=== PATIENT | female | born 1995 | race American Indian/Alaskan Native ===

== ENCOUNTER 2017-02-15 16:58 | Emergency (ER) | payer SELFPAY ==
[2017-02-15 17:45] LABS: Bilirubin,Urine NEG (Negative); Blood,Urine NEG (Negative); Ketones,Urine NEG (Negative); Leukocyte Esterase,Urine NEG (Negative); Mucus,Urine FEW /HPF; Nitrite,Urine NEG (Negative); Protein,Urine <15 mg/dL mg/dL (Negative); Urobilinogen,Urine < 2.0 mg/dL (<2.0)
--- NOTE | 2017-02-15 19:52 | Emergency Department Report ---
ED Female HPI - General Chief complaint: Urogenital-Female Stated complaint: FREQUENT URINATING, ABDOMINAL PAIN, DISCHARGE Time Seen by Provider: 02/15/17 19:33 Source: patient Mode of arrival: Ambulatory Limitations: No Limitations - History of Present Illness Initial comments: This is a 21-year-old female nontoxic, well nourished in appearance, no acute signs of distress presents to the ED complaining of foul order with vaginal discharge x1 week. She stated she had a sexual activity with an unknown male without condoms and then developed the symptoms. Patient states she is concerned about STD and would like to be treated empirically. Patient denies any dysuria, polyuria, hematuria, urinary frequency, pelvic pain, abdominal pain , nausea, vomiting, chest pain or shortness of breath. Patient denies any fever or chills. Denies any allergies with past medical history of anxiety. MD Complaint: vaginal discharge -: week(s) (1) Radiation: non-radiating Severity: mild Severity scale (0 -10): 0 Consistency: constant Improves with: none Worsens with: none Are you Now?: No Last Menstrual Period: 01/31/17 EDC: 11/07/17 Associated Symptoms: vaginal discharge. denies: vaginal bleeding, abdominal pain, nausea/vomiting, fever/chills, headaches, loss of appetite, dysuria, hematuria, rash, seizure, shortness of breath, syncope, weakness - Related Data Sexually active: Yes Allergies Allergy/AdvReac Type Severity Reaction Status Date / Time No Known Allergies Allergy Unverified 02/15/17 17:12 ED Review of Systems ROS: Stated complaint: FREQUENT URINATING, ABDOMINAL PAIN, DISCHARGE Other details as noted in HPI Constitutional: denies: chills, fever Eyes: denies: eye pain, eye discharge, vision change ENT: denies: ear pain, throat pain Respiratory: denies: cough, shortness of breath, wheezing Cardiovascular: denies: chest pain, palpitations Endocrine: no symptoms reported Gastrointestinal: denies: abdominal pain, nausea, diarrhea Genitourinary: discharge. denies: urgency, dysuria Musculoskeletal: denies: back pain, joint swelling, arthralgia Skin: denies: rash, lesions Neurological: denies: headache, weakness, paresthesias Psychiatric: denies: anxiety, depression Hematological/Lymphatic: denies: easy bleeding, easy bruising ED Past Medical Hx - Past Medical History Previous Medical History?: Yes Hx Psychiatric Treatment: Yes (Anxiety, depression) - Surgical History Past Surgical History?: No - Social History Smoking Status: Current Some Day Smoker Substance Use Type: Alcohol, Marijuana ED Physical Exam - General Limitations: No Limitations General appearance: alert, in no apparent distress - Head Head exam: Present: atraumatic, normocephalic, normal inspection - Eye Eye exam: Present: normal appearance, PERRL, EOMI. Absent: scleral icterus, conjunctival injection, nystagmus, periorbital swelling, periorbital tenderness Pupils: Present: normal accommodation - ENT ENT exam: Present: normal exam, normal orophraynx, mucous membranes moist, TM's normal bilaterally, normal external ear exam - Neck Neck exam: Present: normal inspection, full ROM. Absent: tenderness, meningismus, lymphadenopathy, thyromegaly - Respiratory Respiratory exam: Present: normal lung sounds bilaterally. Absent: respiratory distress, wheezes, rales, rhonchi, stridor, chest wall tenderness, accessory muscle use, decreased breath sounds, prolonged expiratory - Cardiovascular Cardiovascular Exam: Present: regular rate, normal rhythm, normal heart sounds. Absent: bradycardia, tachycardia, irregular rhythm, systolic murmur, diastolic murmur, rubs, gallop - GI/Abdominal GI/Abdominal exam: Present: soft, normal bowel sounds. Absent: distended, tenderness, guarding, rebound, rigid, diminished bowel sounds - Expanded GI/Abdominal Exam Expanded GI/Abdominal exam: Absent: psoas sign, obturator sign, heel tap sign, Fletcher's sign, Rovsing's sign, tenderness at [place]'s [place], ascites - Rectal Rectal exam: Present: deferred - External exam: Present: normal external exam, other (chaperoned Sharri youth nutritional monitor present during exam). Absent: erythema, swelling, lesions, lacerations, ecchymosis, bleeding Speculum exam: Present: normal speculum exam, cervical discharge (white colored with foul odor), other (chaperoned Sharri youth nutritional monitor present during exam). Absent: erythema, vaginal discharge, vaginal bleeding, foreign body, tissue, laceration Bi-manual exam: Present: normal bi-manual exam. Absent: cervical motion tendernes, adnexal tenderness, adnexal mass, uterine enlargement, uterine tenderness - Extremities Exam Extremities exam: Present: normal inspection, full ROM, normal capillary refill. Absent: tenderness, pedal edema, joint swelling, calf tenderness - Back Exam Back exam: Present: normal inspection, full ROM. Absent: tenderness, CVA tenderness (R), CVA tenderness (L), muscle spasm, paraspinal tenderness, vertebral tenderness, rash noted - Neurological Exam Neurological exam: Present: alert, oriented X3, CN II-XII intact, normal gait, reflexes normal - Psychiatric Psychiatric exam: Present: normal affect, normal mood - Skin Skin exam: Present: warm, dry, intact, normal color. Absent: rash ED Course Vital Signs 02/15/17 17:13 Temperature 98.8 F Pulse Rate 85 Respiratory 18 Rate Blood Pressure 115/77 O2 Sat by Pulse 98 Oximetry - Reevaluation(s) Reevaluation #1: 02/15/17 19:54 Patient is speaking in full sentences with no signs of distress noted. ED Medical Decision Making - Medical Decision Making 21-year-old female that presents with possible STD exposure. Wet prep obtained with negative for BV, tric, or yeast. Patient is stable and was examined by me. naomi Harrell youth nutritional monitor present during exam. UA negative for UTI or test. There was positive white vaginal discharge with foul odor. She received Rocephin and azithromycin ED because patient stated she wants to be empirically treated for possible STD. Gonorrhea and Chlamydia has been obtained and sent to lab pending results and patient was instructed to return in 3 days to the medical records to obtain the results. Patient was instructed to follow-up with a primary care doctor in 3-5 days or if symptoms worsen and continue return to emergency room as soon as possible possible. Patient is hemodynamically stable with stable vital signs. Patient states he is feeling better. At time time of discharge, the patient does not seem toxic or ill in appearance. No acute signs of distress noted. Patient agrees to discharge treatment plan of care. No further questions noted by the patient. Critical care attestation.: If time is entered above; I have spent that time in minutes in the direct care of this critically ill patient, excluding procedure time. ED Disposition Clinical Impression: Vaginal discharge, Possible exposure to STD Disposition: DC-01 TO HOME OR SELFCARE Is pt being admited?: No Does the pt Need Aspirin: No Condition: Stable Instructions: Safe Sex (ED) Additional Instructions: Follow-up with a primary care doctor in 3-5 days or if symptoms worsen and continue return to emergency room as soon as possible possible. Referrals: PRIMARY CARE, [Primary Care Provider] - 3-5 Days RADHA GARCÍA MD [Staff Physician] - 3-5 Days NAT DUPREE MD [Staff Physician] - 3-5 Days [facility] [Outside] - 3-5 Days [facility] [Outside] - 3-5 Days Forms: Work/School Release Form(ED)
[2017-02-15] MEDS ORDERED: ROCEPHIN IM ONE (19:59)
[2017-02-15] MEDS ORDERED: XYLOCAINE 1% MPF 5 mL INFILTRATI ONE (19:59)
[2017-02-15] MEDS ORDERED: ZITHROMAX PO ONE (19:59)
[2017-02-15 21:26] VITALS: BP 117/76
== END 2017-02-15 21:24 | disposition home or self-care (01) ==
LOC: ED 16:58
DX: N89.8 Other specified noninflammatory disorders of vagina (principal); R30.0 Dysuria; F17.210 Nicotine dependence, cigarettes, uncomplicated; F12.10 Cannabis abuse, uncomplicated
CPT/HCPCS: 81001; 81025; 87210; 87591; 96372; 99284; J0696

== ENCOUNTER 2017-06-27 05:42 | Emergency (ER) | payer SELFPAY ==
[2017-06-27 05:57] VITALS: BP 111/76
[2017-06-27 08:04] LABS: Eosinophils # (Auto) 0.2 K/mm3 (0.0-0.4); Eosinophils % (Auto) 3.9 % (0.0-4.3); Hematocrit 36.5 % (30.3-42.9); Hemoglobin 11.9 gm/dl (10.1-14.3); Lymphocytes # (Auto) 1.6 K/mm3 (1.2-5.4); Lymphocytes % (Auto) 35.8 % (13.4-35.0); Mean Corpuscular HGB Conc 33 % (30-34); Mean Corpuscular Hemoglobin 29 pg (28-32); Mean Corpuscular Volume 87 fl (79-97); Monocytes # (Auto) 0.4 K/mm3 (0.0-0.8); Monocytes % (Auto) 9.6 % (0.0-7.3); Platelet Count 207 K/mm3 (140-440); Red Blood Count 4.18 M/mm3 (3.65-5.03); Red Cell Distribution Width 13.3 % (13.2-15.2)
[2017-06-27 08:27] LABS: Alanine Aminotransferase 9 units/L (7-56); Albumin 4.2 g/dL (3.9-5); BUN/Creatinine Ratio 19; Blood Urea Nitrogen 13 mg/dL (7-17); Calcium 8.6 mg/dL (8.4-10.2); Hemolysis Index 1
--- NOTE | 2017-06-27 08:29 | Emergency Department Report ---
ED General Adult HPI - General Chief complaint: Abdominal Pain Stated complaint: N/V/D, ABD PAIN Time Seen by Provider: 06/27/17 08:26 Source: patient Mode of arrival: Ambulatory Limitations: No Limitations - History of Present Illness Initial comments: Patient complains of left upper quadrant discomfort which has resolved. She states that she has had diarrhea which is also resolved. She is laying comfortably playing on her cell phone. She denies any recent fever or chills. The discomfort was dull and intermittent. He denies any unusual foods sick contacts or recent travel. She is essentially asymptomatic at this time. No signs of GI bleeding were reported. -: Gradual, days(s) Location: abdomen, left Radiation: non-radiation Quality: dull Consistency: intermittent, now resolved Improves with: none Worsens with: none Associated Symptoms: other (diarrhea and nausea). denies: fever/chills - Related Data Previous Rx's Medication Instructions Recorded Last Taken Type Ondansetron [Zofran Odt] 4 mg PO Q6H PRN #7 tab.rapdis 06/27/17 Unknown Rx traMADol [Ultram] 50 mg PO Q6HR PRN #7 tablet 06/27/17 Unknown Rx Allergies Allergy/AdvReac Type Severity Reaction Status Date / Time No Known Allergies Allergy Unverified 02/15/17 17:12 ED Review of Systems ROS: Stated complaint: N/V/D, ABD PAIN Other details as noted in HPI Constitutional: denies: chills, fever Eyes: denies: eye pain, eye discharge, vision change ENT: denies: ear pain, throat pain Respiratory: denies: cough, shortness of breath, wheezing Cardiovascular: denies: chest pain, palpitations Endocrine: no symptoms reported Gastrointestinal: abdominal pain, nausea, diarrhea Genitourinary: denies: urgency, dysuria, frequency, hematuria, discharge, abnormal menses Musculoskeletal: denies: back pain, joint swelling, arthralgia Skin: denies: rash, lesions Neurological: denies: headache, weakness, paresthesias Psychiatric: denies: anxiety, depression Hematological/Lymphatic: denies: easy bleeding, easy bruising ED Past Medical Hx - Past Medical History Previous Medical History?: Yes Hx Psychiatric Treatment: Yes (Anxiety, depression) - Surgical History Past Surgical History?: No - Social History Smoking Status: Never Smoker Substance Use Type: None - Medications Home Medications: Home Medications Medication Instructions Recorded Confirmed Last Taken Type Ondansetron [Zofran Odt] 4 mg PO Q6H PRN #7 tab.rapdis 06/27/17 Unknown Rx traMADol [Ultram] 50 mg PO Q6HR PRN #7 tablet 06/27/17 Unknown Rx ED Physical Exam - General Limitations: No Limitations General appearance: alert, in no apparent distress - Head Head exam: Present: atraumatic, normocephalic - Eye Eye exam: Present: normal appearance - ENT ENT exam: Present: mucous membranes moist - Neck Neck exam: Present: normal inspection - Respiratory Respiratory exam: Present: normal lung sounds bilaterally. Absent: respiratory distress - Cardiovascular Cardiovascular Exam: Present: regular rate, normal rhythm. Absent: systolic murmur, diastolic murmur, rubs, gallop - GI/Abdominal GI/Abdominal exam: Present: soft, normal bowel sounds. Absent: distended, tenderness, guarding, rebound, rigid, organomegaly, mass, bruit, pulsatile mass , hernia - Extremities Exam Extremities exam: Present: normal inspection - Back Exam Back exam: Present: normal inspection - Neurological Exam Neurological exam: Present: alert, oriented X3, CN II-XII intact. Absent: motor sensory deficit - Psychiatric Psychiatric exam: Present: normal affect, normal mood - Skin Skin exam: Present: warm, dry, intact, normal color. Absent: rash ED Course Vital Signs 06/27/17 05:50 Temperature 97.9 F Pulse Rate 64 Respiratory 18 Rate Blood Pressure 111/76 O2 Sat by Pulse 99 Oximetry - Reevaluation(s) Reevaluation #1: Patient couldn't produce a urine specimen here. She has no symptoms. She is appropriate for follow-up with a primary care provider. 06/27/17 08:52 ED Medical Decision Making - Lab Data Result diagrams: 06/27/17 07:48 06/27/17 07:48 Laboratory Results - last 24 hr 06/27/17 06/27/17 06/27/17 07:48 07:48 07:48 WBC 4.5 RBC 4.18 Hgb 11.9 Hct 36.5 MCV 87 MCH 29 MCHC 33 RDW 13.3 Plt Count 207 Lymph % (Auto) 35.8 H Richardson % (Auto) 9.6 H Eos % (Auto) 3.9 Baso % (Auto) 1.0 Lymph # 1.6 Richardson # 0.4 Eos # 0.2 Baso # 0.0 Seg Neutrophils % 49.7 Seg Neutrophils # 2.2 Sodium 142 Potassium 4.2 Chloride 106.1 Carbon Dioxide 26 Anion Gap 14 BUN 13 Creatinine 0.7 Estimated GFR > 60 BUN/Creatinine Ratio 19 Glucose 80 Calcium 8.6 Total Bilirubin 0.30 AST 13 ALT 9 Alkaline Phosphatase 47 Total Protein 6.4 Albumin 4.2 Albumin/Globulin Ratio 1.9 HCG, Qual Negative Critical care attestation.: If time is entered above; I have spent that time in minutes in the direct care of this critically ill patient, excluding procedure time. ED Disposition Clinical Impression: Diarrhea Qualifiers: Diarrhea type: unspecified type Qualified Code(s): R19.7 - Diarrhea, unspecified Abdominal pain Qualifiers: Abdominal location: left upper quadrant Qualified Code(s): R10.12 - Left upper quadrant pain Disposition: TO HOME OR SELFCARE Is pt being admited?: No Does the pt Need Aspirin: No Condition: Stable Instructions: Abdominal Pain (ED), Acute Diarrhea (ED) Additional Instructions: Medicine Rx if needed for nausea and pain. Follow up with the primary care clinic. Return any acute change or worsening symptoms. Prescriptions: Ondansetron [Zofran Odt] 4 mg PO Q6H PRN #7 tab.rapdis PRN Reason: Nausea traMADol [Ultram] 50 mg PO Q6HR PRN #7 tablet PRN Reason: Pain Referrals: PRIMARY CARE, [Primary Care Provider] - 3-5 Days [facility] [Provider Group] - 2-3 Days Time of Disposition: 08:53
[2017-06-27 09:03] LABS: Bilirubin,Urine NEG (Negative); Blood,Urine NEG (Negative); Color,Urine Yellow (Yellow); Mucus,Urine 2+ /HPF; Protein,Urine <15 mg/dL mg/dL (Negative); Urobilinogen,Urine < 2.0 mg/dL (<2.0)
== END 2017-06-27 09:05 | disposition home or self-care (01) ==
LOC: ED 05:42
DX: R10.12 Left upper quadrant pain (principal); R19.7 Diarrhea, unspecified; R11.0 Nausea; F41.9 Anxiety disorder, unspecified; F32.9 Major depressive disorder, single episode, unspecified
CPT/HCPCS: 36415; 80053; 81001; 84703; 85025; 99283

== ENCOUNTER 2018-01-29 16:42 | Emergency (ER) | payer SELFPAY ==
[2018-01-29 16:53] VITALS: BP 119/73
[2018-01-29 18:25] LABS: Bacteria,Urine 1+ /HPF (Negative); Bilirubin,Urine NEG (Negative); Blood,Urine SM (Negative); Color,Urine Straw (Yellow); Mucus,Urine FEW /HPF; Protein,Urine <15 mg/dL mg/dL (Negative); Urobilinogen,Urine < 2.0 mg/dL (<2.0)
[2018-01-29 18:47] LABS: HCG Qualitative,Urine Negative (Negative)
[2018-01-29] MEDS ORDERED: ULTRAM PO ONE (19:10)
[2018-01-29] MEDS ORDERED: XYLOCAINE 1% MPF 5 mL INFILTRATI ONE (19:10)
[2018-01-29] MEDS ORDERED: ROCEPHIN IM ONE (19:10)
[2018-01-29] MEDS ORDERED: ZITHROMAX PO ONE (19:12)
--- NOTE | 2018-01-29 19:15 | Emergency Department Report ---
ED Dysuria HPI - HPI Chief Complaint: Urogenital-Female Stated Complaint: ABD PAIN/BACK SIDE/URINATION OF BLOOD Time Seen by Provider: 01/29/18 19:06 Duration: 3 Days Location of Discomfort: Suprapubic Severity: Mild Symptoms: Dysuria: Yes, Frequency: No, Suprapubic Pain: No, Flank Pain: No, Fever: Yes, Hematuria: Yes, Abdominal Pain: No, Previous UTI's: Yes ED Review of Systems ROS: Stated complaint: ABD PAIN/BACK SIDE/URINATION OF BLOOD Other details as noted in HPI Comment: Unobtainable due to pts medical conditions Constitutional: fever. denies: chills Eyes: denies: eye pain ENT: denies: ear pain Respiratory: denies: cough Cardiovascular: denies: palpitations Endocrine: denies: flushing, intolerance to cold Gastrointestinal: denies: abdominal pain, nausea, vomiting, diarrhea, constipation, hematemesis, melena Genitourinary: dysuria, hematuria, abnormal menses, dyspareunia. denies: urgency, frequency, discharge Musculoskeletal: back pain Skin: denies: rash, lesions Neurological: denies: headache, weakness Psychiatric: denies: anxiety, depression Hematological/Lymphatic: denies: easy bleeding ED Past Medical Hx - Past Medical History Previous Medical History?: No Hx Psychiatric Treatment: Yes (Anxiety, depression) - Surgical History Past Surgical History?: No - Social History Smoking Status: Never Smoker Substance Use Type: Marijuana - Medications Home Medications: Home Medications Medication Instructions Recorded Confirmed Last Taken Type cephALEXin [Keflex] 500 mg PO Q12HR #20 cap 01/29/18 Unknown Rx Dysuria Exam - Exam General: Vital signs noted. No distress. Alert and acting appropriately. Exam: Yes Moist Mucous Membranes, No CVA Tenderness, No Abdominal Tenderness, No Rigidity or Guarding Labs: Lab Results 01/29/18 Range/Units 17:36 Urine Color Straw (Yellow) Urine Turbidity Slightly-cloudy (Clear) Urine pH 7.0 (5.0-7.0) Ur Specific [place] 1.010 (1.003-1.030) Urine Protein <15 mg/dl (Negative) mg/dL Urine Glucose (UA) Neg (Negative) mg/dL Urine Ketones Neg (Negative) mg/dL Urine Blood Sm (Negative) Urine Nitrite Neg (Negative) Urine Bilirubin Neg (Negative) Urine Urobilinogen < 2.0 (<2.0) mg/dL Ur Leukocyte Esterase Mod (Negative) Urine WBC (Auto) 127.0 H (0.0-6.0) /HPF Urine RBC (Auto) 19.0 (0.0-6.0) /HPF U Epithel Cells (Auto) 1.0 (0-13.0) /HPF Urine Bacteria (Auto) 1+ (Negative) /HPF Urine Mucus Few /HPF Urine HCG, Qual Negative (Negative) ED Course Vital Signs 01/29/18 16:51 Temperature 99.8 F H Pulse Rate 78 Respiratory 16 Rate Blood Pressure 119/73 O2 Sat by Pulse 99 Oximetry ED Medical Decision Making - Medical Decision Making GIVEN AMOUNT OF LEUK IN URINE TX FOR UTI AND STI - Differential Diagnosis UTI/ PYLO/ STI/ RO PREG Critical care attestation.: If time is entered above; I have spent that time in minutes in the direct care of this critically ill patient, excluding procedure time. ED Disposition Clinical Impression: UTI (urinary tract infection) Disposition: TO HOME OR SELFCARE Is pt being admited?: No Does the pt Need Aspirin: No Condition: Stable Instructions: Urinary Tract Infection in Women (ED) Additional Instructions: HYDRATE WELL DRINK A LOT OF WATER MOTRIN OR TYLENOL FOR PAIN OR FEVER ACTIVITY TOLERATED VOID AFTER SEX SAFE SEX AVOID CAFFEINE MED ORDERED TODAY UNTIL GONE SEE PCP AFTER COMPLETION OF MEDS TO BE SURE THE UTI HAS COMPLETED Prescriptions: cephALEXin [Keflex] 500 mg PO Q12HR #20 cap Referrals: PRIMARY MD YUMIKO [Primary Care Provider] - 3-5 Days DISHA PARHAM MD [Staff Physician] - 3-5 Days Time of Disposition: 19:12
== END 2018-01-29 19:34 | disposition home or self-care (01) ==
LOC: ED 16:42
DX: N39.0 Urinary tract infection, site not specified (principal); F32.9 Major depressive disorder, single episode, unspecified; F41.9 Anxiety disorder, unspecified
CPT/HCPCS: 81001; 81025; 96372; 99283; J0696

== ENCOUNTER 2018-05-09 16:45 | Emergency (ER) | payer SELFPAY ==
[2018-05-09 16:55] VITALS: BP 118/68
[2018-05-09] MEDS ORDERED: NACL 0.9% 1000 ML 1,000 ML IV ONE (16:55)
[2018-05-09 17:34] LABS: Basophils % (Auto) 0.9 % (0.0-1.8); Eosinophils # (Auto) 0.2 K/mm3 (0.0-0.4); Eosinophils % (Auto) 4.6 % (0.0-4.3); Hematocrit 36.7 % (30.3-42.9); Hemoglobin 12.2 gm/dl (10.1-14.3); Lymphocytes # (Auto) 1.2 K/mm3 (1.2-5.4); Lymphocytes % (Auto) 29.4 % (13.4-35.0); Mean Corpuscular HGB Conc 33 % (30-34); Mean Corpuscular Volume 87 fl (79-97); Monocytes # (Auto) 0.3 K/mm3 (0.0-0.8); Monocytes % (Auto) 7.9 % (0.0-7.3); Platelet Count 250 K/mm3 (140-440); Red Cell Distribution Width 13.6 % (13.2-15.2)
[2018-05-09 17:51] LABS: Alanine Aminotransferase 16 units/L (7-56); Albumin 4.5 g/dL (3.9-5); BUN/Creatinine Ratio 16; Blood Urea Nitrogen 14 mg/dL (7-17); Calcium 9.1 mg/dL (8.4-10.2); Hemolysis Index 3
[2018-05-09] MEDS ORDERED: ZOFRAN IV ONE (20:41)
[2018-05-09] MEDS ORDERED: TORADOL IV ONE (20:41)
--- NOTE | 2018-05-09 21:10 | Emergency Department Report ---
Vomiting/Diarrhea - HPI Chief Complaint: Abdominal Pain Stated Complaint: VOMITING/DIARRHEA Time Seen by Provider: 05/09/18 20:35 Duration: 1 Day Severity: moderate Nausea/Vomiting Severity: Mild Diarrhea Severity: Mild Pain Location: Generalized Pain Severity: Mild Symptoms: Yes Watery Diarrhea, Yes Able to Tolerate Fluids, Yes Recent Unusual Foods, No Bloody diarrhea, No Fever, No Recent Untreated Water, No Recent use of Antibiotics, No Family w/ Similar Symptoms, No Contacts w/ Similar Symptoms, No Rash, No Hematuria, No Recent URI Symptoms Other History: n/v/d after night of THC and ETOH, symptoms improving, tolerating po intake with n/v at this time, pain is 2/10 last n/v 6 hrs ago last po intake 1 hr ago. ED Review of Systems ROS: Stated complaint: VOMITING/DIARRHEA Other details as noted in HPI Constitutional: denies: chills, fever Eyes: denies: eye pain, eye discharge, vision change ENT: denies: ear pain, throat pain Respiratory: denies: cough, shortness of breath, wheezing Cardiovascular: denies: chest pain, palpitations Endocrine: no symptoms reported Gastrointestinal: nausea, vomiting, diarrhea. denies: constipation, hematemes is, melena, hematochezia Genitourinary: denies: urgency, dysuria, discharge Musculoskeletal: denies: back pain, joint swelling, arthralgia Skin: denies: rash, lesions Neurological: denies: headache, weakness, paresthesias Psychiatric: denies: anxiety, depression Hematological/Lymphatic: denies: easy bleeding, easy bruising ED Past Medical Hx - Past Medical History Previous Medical History?: Yes Hx Psychiatric Treatment: Yes (Anxiety, depression) - Surgical History Past Surgical History?: No - Social History Smoking Status: Never Smoker Substance Use Type: Marijuana - Medications Home Medications: Home Medications Medication Instructions Recorded Confirmed Last Taken Type cephALEXin [Keflex] 500 mg PO Q12HR #20 cap 01/29/18 Unknown Rx Ondansetron [Zofran ODT TAB] 8 mg PO Q12HR #20 tab.rapdis 03/17/18 Unknown Rx Sulfamethoxazole/Trimethoprim 1 each PO BID #10 tablet 03/17/18 Unknown Rx [Bactrim DS TAB] Dicyclomine [Bentyl] 10 mg PO QID PRN #30 capsule 05/09/18 Unknown Rx Naproxen 500 mg PO BID PRN #30 tablet 05/09/18 Unknown Rx Ondansetron [Zofran Odt] 4 mg PO Q8HR PRN #12 tab.rapdis 05/09/18 Unknown Rx Vomiting Diarrhea Exam - Exam General: Vital signs noted. No distress. Alert and acting appropriately. HEENT: Yes Moist Mucous Membranes, No Pharyngeal Erythema, No Pharyngeal Exudates, No Rhinorrhea, No Conjuctival Injection, No Frontal Tenderness, No Maxillary Tenderness Neck: No Adenopathy, No Rigidity Lungs: Yes Clear Lung Sounds, Yes Good Air Exchange, No Wheezes, No Stridor, No Cough, No Nasal Flaring, No Retractions, No Use of Accessory Muscles Heart exam: Regular: Yes, Murmur: No, Tachycardia: No Abdomen: Tenderness: No, Peritoneal Signs: No, Distention: No, Hyperactive Bowel sounds: No Skin exam: Rash: No, Edema: No, Normal turgor: Yes Neurologic: Alert and oriented, no deficits. Musculoskeletal: Unremarkable. ED Course Vital Signs 05/09/18 16:53 Temperature 97.8 F Pulse Rate 81 Respiratory 16 Rate Blood Pressure 118/68 O2 Sat by Pulse 100 Oximetry ED Medical Decision Making - Lab Data Result diagrams: 05/09/18 17:20 05/09/18 17:20 - Medical Decision Making Patient refuses IV hydration patient refuses further lab workup as well as his symptoms are improved Patient causing all symptoms are resolved tolerating by mouth intake at this time tolerating by mouth hydration at this time without vomiting last to decrease THC and EtOH use hydrate as directed follow up PCP in 2-3 days return to emergency department should symptoms return or worsen recurrent patient appears well-hydrated well-nourished nontoxic will be DC'd to home in stable condition at this time Critical care attestation.: If time is entered above; I have spent that time in minutes in the direct care of this critically ill patient, excluding procedure time. ED Disposition Clinical Impression: Nausea and vomiting Qualifiers: Vomiting type: unspecified Vomiting Intractability: non-intractable Qualified Code(s): R11.2 - Nausea with vomiting, unspecified Disposition: DC-01 TO HOME OR SELFCARE Is pt being admited?: No Does the pt Need Aspirin: No Condition: Stable Instructions: Abdominal Pain (ED), Acute Nausea and Vomiting (ED) Prescriptions: Dicyclomine [Bentyl] 10 mg PO QID PRN #30 capsule PRN Reason: abd spasm Naproxen 500 mg PO BID PRN #30 tablet PRN Reason: pain Ondansetron [Zofran Odt] 4 mg PO Q8HR PRN #12 tab.rapdis PRN Reason: Nausea And Vomiting Referrals: PRIMARY CARE,MD [Primary Care Provider] - 3-5 Days [facility] [Outside] - 3-5 Days Forms: Work/School Release Form(ED) Time of Disposition: 21:12
== END 2018-05-09 21:25 | disposition home or self-care (01) ==
LOC: ED 16:45
DX: R11.2 Nausea with vomiting, unspecified (principal); R19.7 Diarrhea, unspecified; F41.9 Anxiety disorder, unspecified; F32.9 Major depressive disorder, single episode, unspecified; F12.10 Cannabis abuse, uncomplicated
CPT/HCPCS: 36415; 80053; 83690; 85025; 99283

== ENCOUNTER 2018-06-14 19:46 | Emergency (ER) | payer SELFPAY ==
[2018-06-14 20:59] LABS: Basophils % (Auto) 0.8 % (0.0-1.8); Eosinophils # (Auto) 0.1 K/mm3 (0.0-0.4); Eosinophils % (Auto) 2.7 % (0.0-4.3); Hematocrit 35.3 % (30.3-42.9); Hemoglobin 12.3 gm/dl (10.1-14.3); Lymphocytes # (Auto) 1.8 K/mm3 (1.2-5.4); Mean Corpuscular HGB Conc 35 % (30-34); Mean Corpuscular Volume 86 fl (79-97); Monocytes # (Auto) 0.3 K/mm3 (0.0-0.8); Monocytes % (Auto) 5.7 % (0.0-7.3); Platelet Count 268 K/mm3 (140-440); Red Blood Count 4.09 M/mm3 (3.65-5.03); Red Cell Distribution Width 13.4 % (13.2-15.2)
[2018-06-14 21:11] LABS: BUN/Creatinine Ratio 19; Blood Urea Nitrogen 13 mg/dL (7-17); Calcium 9.5 mg/dL (8.4-10.2); Hemolysis Index 9
[2018-06-15] MEDS ORDERED: TORADOL IV ONE (01:20)
[2018-06-15] MEDS ORDERED: NACL 0.9% 1000 ML 1,000 ML IV ONE (01:20)
[2018-06-15] MEDS ORDERED: ZOFRAN IV ONE (01:20)
[2018-06-15 02:10] LABS: Bilirubin,Urine NEG (Negative); Blood,Urine NEG (Negative); Color,Urine Yellow (Yellow); Mucus,Urine FEW /HPF; Protein,Urine <15 mg/dL mg/dL (Negative); Urobilinogen,Urine < 2.0 mg/dL (<2.0)
--- NOTE | 2018-06-15 02:11 | Emergency Department Report ---
ED Abdominal Pain HPI - General Chief Complaint: Abdominal Pain Stated Complaint: VOMITTING ABD PAIN Time Seen by Provider: 06/15/18 01:19 Source: patient Mode of arrival: Ambulatory Limitations: No Limitations - History of Present Illness Initial Comments: Patient is a 22-year-old female who presents for nausea vomiting abdominal pain 2 days patient standing suspicious food treated there is no fevers no chills last vomiting this a.m. last by mouth intake this afternoon hamburger which she tolerated "presents tonight just to get checked out" this time is 3/10 and cramping intermittent patient denies vaginal discharge no concern for STI patient presents tonight along with partner who has no symptoms patient has no history of GERD last menstrual period 2 weeks ago symptoms are exacerbated by po Intake, symptoms are relieved by nothing tried. MD Complaint: abdominal pain Onset/Timin -: days(s) Location: LLQ Radiation: suprapubic Migration to: suprapubic Severity: moderate Severity scale (0 -10): 3 Quality: cramping, aching Consistency: intermittent Improves With: nothing Worsens With: eating Context: possible food poisoning Associated Symptoms: nausea, vomiting. denies: diarrhea, chills, constipation, dysuria, hematemesis, melena, hematuria - Related Data LMP (females 10-50): last week Previous Rx's Medication Instructions Recorded Last Taken Type cephALEXin [Keflex] 500 mg PO Q12HR #20 cap 01/29/18 Unknown Rx Ondansetron [Zofran ODT TAB] 8 mg PO Q12HR #20 tab.rapdis 03/17/18 Unknown Rx Sulfamethoxazole/Trimethoprim 1 each PO BID #10 tablet 03/17/18 Unknown Rx [Bactrim DS TAB] Dicyclomine [Bentyl] 10 mg PO QID PRN #30 capsule 05/09/18 Unknown Rx Naproxen 500 mg PO BID PRN #30 tablet 05/09/18 Unknown Rx Ondansetron [Zofran Odt] 4 mg PO Q8HR PRN #12 tab.rapdis 05/09/18 Unknown Rx Dicyclomine [Bentyl] 10 mg PO QID PRN #30 capsule 06/15/18 Unknown Rx Naproxen [Naprosyn] 500 mg PO BID PRN #30 tablet 06/15/18 Unknown Rx Ondansetron [Zofran Odt] 4 mg PO Q8HR PRN #12 tab.rapdis 06/15/18 Unknown Rx Allergies Allergy/AdvReac Type Severity Reaction Status Date / Time No Known Allergies Allergy Unverified 02/15/17 17:12 ED Review of Systems ROS: Stated complaint: VOMITTING ABD PAIN Other details as noted in HPI Constitutional: denies: chills, fever Eyes: denies: eye pain, eye discharge, vision change ENT: denies: ear pain, throat pain Respiratory: denies: cough, shortness of breath, wheezing Cardiovascular: denies: chest pain, palpitations Endocrine: no symptoms reported Gastrointestinal: abdominal pain (LLQ ). denies: nausea, vomiting, diarrhea, constipation, hematemesis, hematochezia Genitourinary: denies: urgency, dysuria, frequency, hematuria, discharge, abnormal menses, dyspareunia Musculoskeletal: denies: back pain, joint swelling, arthralgia Skin: denies: rash, lesions Neurological: denies: headache, weakness, paresthesias Psychiatric: denies: anxiety, depression Hematological/Lymphatic: denies: easy bleeding, easy bruising ED Past Medical Hx - Past Medical History Hx Psychiatric Treatment: Yes (Anxiety, depression) - Surgical History Past Surgical History?: No - Social History Smoking Status: Never Smoker Substance Use Type: None - Medications Home Medications: Home Medications Medication Instructions Recorded Confirmed Last Taken Type cephALEXin [Keflex] 500 mg PO Q12HR #20 cap 01/29/18 Unknown Rx Ondansetron [Zofran ODT TAB] 8 mg PO Q12HR #20 tab.rapdis 03/17/18 Unknown Rx Sulfamethoxazole/Trimethoprim 1 each PO BID #10 tablet 03/17/18 Unknown Rx [Bactrim DS TAB] Dicyclomine [Bentyl] 10 mg PO QID PRN #30 capsule 05/09/18 Unknown Rx Naproxen 500 mg PO BID PRN #30 tablet 05/09/18 Unknown Rx Ondansetron [Zofran Odt] 4 mg PO Q8HR PRN #12 tab.rapdis 05/09/18 Unknown Rx Dicyclomine [Bentyl] 10 mg PO QID PRN #30 capsule 06/15/18 Unknown Rx Naproxen [Naprosyn] 500 mg PO BID PRN #30 tablet 06/15/18 Unknown Rx Ondansetron [Zofran Odt] 4 mg PO Q8HR PRN #12 tab.rapdis 06/15/18 Unknown Rx ED Physical Exam - General Limitations: No Limitations General appearance: alert, in no apparent distress - Head Head exam: Present: atraumatic, normocephalic - Eye Eye exam: Present: normal appearance, PERRL, EOMI - ENT ENT exam: Present: mucous membranes moist - Neck Neck exam: Present: normal inspection, full ROM. Absent: tenderness, meningismus, lymphadenopathy, thyromegaly - Respiratory Respiratory exam: Present: normal lung sounds bilaterally. Absent: wheezes, stridor, chest wall tenderness, prolonged expiratory - Cardiovascular Cardiovascular Exam: Present: regular rate, normal rhythm, normal heart sounds. Absent: systolic murmur, diastolic murmur, rubs, gallop - GI/Abdominal GI/Abdominal exam: Present: soft, tenderness (super pubic ), normal bowel sounds. Absent: rebound, bruit, hernia - Rectal Rectal exam: Present: deferred - External exam: Present: other (deferred per patient ) - Extremities Exam Extremities exam: Present: normal inspection, full ROM, normal capillary refill. Absent: tenderness, pedal edema - Back Exam Back exam: Present: normal inspection, full ROM. Absent: tenderness, CVA tenderness (R), CVA tenderness (L), muscle spasm, rash noted - Neurological Exam Neurological exam: Present: alert, oriented X3, CN II-XII intact, normal gait, motor sensory deficit, reflexes normal - Psychiatric Psychiatric exam: Present: normal affect, normal mood - Skin Skin exam: Present: warm, dry, intact, normal color. Absent: rash ED Course Vital Signs 06/14/18 20:03 Temperature 97.8 F Pulse Rate 84 Respiratory 20 Rate Blood Pressure 119/76 ED Medical Decision Making - Lab Data Result diagrams: 06/14/18 20:39 06/14/18 20:39 Labs 06/14/18 06/14/18 06/14/18 20:39 20:39 20:39 WBC 4.9 RBC 4.09 Hgb 12.3 Hct 35.3 MCV 86 MCH 30 MCHC 35 H RDW 13.4 Plt Count 268 Lymph % (Auto) 36.0 H [place] % (Auto) 5.7 Eos % (Auto) 2.7 Baso % (Auto) 0.8 Lymph # 1.8 [place] # 0.3 Eos # 0.1 Baso # 0.0 Seg Neutrophils % 54.8 Seg Neutrophils # 2.7 Sodium 143 Potassium 3.9 Chloride 104.1 Carbon Dioxide 29 Anion Gap 14 BUN 13 Creatinine 0.7 Estimated GFR > 60 BUN/Creatinine Ratio 19 Glucose 102 H Calcium 9.5 Total Bilirubin Direct Bilirubin Indirect Bilirubin AST ALT Alkaline Phosphatase Total Protein Albumin Albumin/Globulin Ratio Lipase HCG, Qual Negative Urine Color Urine Turbidity Urine pH Ur Specific [place] Urine Protein Urine Glucose (UA) Urine Ketones Urine Blood Urine Nitrite Urine Bilirubin Urine Urobilinogen Ur Leukocyte Esterase Urine WBC (Auto) Urine RBC (Auto) U Epithel Cells (Auto) Urine Mucus 06/14/18 06/14/18 20:39 Unknown WBC RBC Hgb Hct MCV MCH MCHC RDW Plt Count Lymph % (Auto) [place] % (Auto) Eos % (Auto) Baso % (Auto) Lymph # [place] # Eos # Baso # Seg Neutrophils % Seg Neutrophils # Sodium Potassium Chloride Carbon Dioxide Anion Gap BUN Creatinine Estimated GFR BUN/Creatinine Ratio Glucose Calcium Total Bilirubin 0.30 Direct Bilirubin < 0.2 Indirect Bilirubin 0.1 AST 17 ALT 18 Alkaline Phosphatase 52 Total Protein 7.5 Albumin 4.7 Albumin/Globulin Ratio 1.7 Lipase 27 HCG, Qual Urine Color Yellow Urine Turbidity Clear Urine pH 6.0 Ur Specific [place] 1.026 Urine Protein <15 mg/dl Urine Glucose (UA) Neg Urine Ketones Neg Urine Blood Neg Urine Nitrite Neg Urine Bilirubin Neg Urine Urobilinogen < 2.0 Ur Leukocyte Esterase Tr Urine WBC (Auto) 1.0 Urine RBC (Auto) 2.0 U Epithel Cells (Auto) 3.0 Urine Mucus Few - Medical Decision Making cmp: normal, cbc: normal, ua: normal, Hcg: neg, pt refuse KUB or further evaluation, stating she has to leave and that she has been here too long, pt is currently tolerating po intake without n/v , abd exam is improved, pt is voiding with difficulty no hematuria no dysuria or frequency no cva tenderness no fever no n/v at this time, plan: bentyl. zofran, naproxen follow up with pcp in 24 hrs return to ed if symptoms worsen, pt verbalized agreement and understanding with discharge plan. Critical care attestation.: If time is entered above; I have spent that time in minutes in the direct care of this critically ill patient, excluding procedure time. ED Disposition Clinical Impression: Abdominal pain Qualifiers: Abdominal location: left lower quadrant Qualified Code(s): R10.32 - Left lower quadrant pain Nausea and vomiting Qualifiers: Vomiting type: unspecified Vomiting Intractability: non-intractable Qualified Code(s): R11.2 - Nausea with vomiting, unspecified Disposition: TO HOME OR SELFCARE Is pt being admited?: No Does the pt Need Aspirin: No Condition: Stable Instructions: Abdominal Pain (ED), Acute Nausea and Vomiting (ED) Prescriptions: Dicyclomine [Bentyl] 10 mg PO QID PRN #30 capsule PRN Reason: abdominal spasm Naproxen [Naprosyn] 500 mg PO BID PRN #30 tablet PRN Reason: pain Ondansetron [Zofran Odt] 4 mg PO Q8HR PRN #12 tab.rapdis PRN Reason: Nausea And Vomiting Referrals: [facility] [Outside] - 3-5 Days Forms: Work/School Release Form(ED) Time of Disposition: 02:43
[2018-06-15 02:26] LABS: Alanine Aminotransferase 18 units/L (7-56); Albumin 4.7 g/dL (3.9-5)
[2018-06-15 02:31] LABS: Bilirubin,Direct < 0.2 mg/dL (0-0.2)
[2018-06-15 03:26] VITALS: BP 114/67
== END 2018-06-15 03:26 | disposition home or self-care (01) ==
LOC: ED 19:46
DX: R10.32 Left lower quadrant pain (principal); R11.2 Nausea with vomiting, unspecified; F41.9 Anxiety disorder, unspecified; F32.9 Major depressive disorder, single episode, unspecified
CPT/HCPCS: 36415; 80048; 80076; 81001; 83690; 84703; 85025; 99283; J1885; J2405; J7030

== ENCOUNTER 2018-07-13 14:50 | Emergency (ER) | payer OTHER ==
--- NOTE | 2018-07-13 14:58 | Emergency Department Report ---
Chief Complaint: Abdominal Pain Stated Complaint: ABD PAIN Time Seen by Provider: 07/13/18 14:53 - HPI History of Present Illness: pt ate [employer] two nights ago awoke in the middle of the night had N/V/D clear vaginal discharge subjective fever yesterday, none today able to tolerate water intake lower abdominal cramping did not try any medication no dysuria sexually active, no protection LNMP: two weeks ago MSE screening note: Focused history and physical exam performed. Due to findings the following was ordered: UA, urine preg, labs ED Disposition for MSE Condition: Stable Instructions: Abdominal Pain (ED)
[2018-07-13 15:12] LABS: Basophils % (Auto) 0.2 % (0.0-1.8); Eosinophils % (Auto) 0.1 % (0.0-4.3); Hemoglobin 12.4 gm/dl (10.1-14.3); Lymphocytes # (Auto) 1.3 K/mm3 (1.2-5.4); Lymphocytes % (Auto) 11.8 % (13.4-35.0); Mean Corpuscular HGB Conc 34 % (30-34); Mean Corpuscular Volume 87 fl (79-97); Monocytes # (Auto) 0.6 K/mm3 (0.0-0.8); Monocytes % (Auto) 5.9 % (0.0-7.3); Platelet Count 217 K/mm3 (140-440); Red Blood Count 4.25 M/mm3 (3.65-5.03); Red Cell Distribution Width 13.3 % (13.2-15.2)
[2018-07-13 15:36] LABS: Alanine Aminotransferase 8 units/L (7-56); Albumin 4.4 g/dL (3.9-5); BUN/Creatinine Ratio 14; Blood Urea Nitrogen 11 mg/dL (7-17); Calcium 9.1 mg/dL (8.4-10.2); Hemolysis Index 3
[2018-07-13] MEDS ORDERED: NACL 0.9% 1000 ML 1,000 ML IV ONE (15:51)
[2018-07-13] MEDS ORDERED: TORADOL IV ONE (15:51)
[2018-07-13] MEDS ORDERED: IMODIUM PO ONE (15:52)
--- NOTE | 2018-07-13 15:55 | Emergency Department Report ---
ED Abdominal Pain HPI - General Chief Complaint: Abdominal Pain Stated Complaint: ABD PAIN Time Seen by Provider: 07/13/18 14:53 Source: patient Mode of arrival: Ambulatory Limitations: No Limitations - History of Present Illness Initial Comments: 22-year-old female presents to the ED with nausea, vomiting, watery diarrhea, suprapubic and RLQ abdominal pain. Patient denies fever. Reports clear, watery vaginal discharge that is now slightly yellow in color. MD Complaint: abdominal pain -: days(s) (2) Location: RLQ Radiation: none Migration to: no migration Severity: moderate Severity scale (0 -10): 8 Quality: cramping Consistency: intermittent Improves With: nothing Worsens With: nothing Context: possible food poisoning Associated Symptoms: nausea, vomiting, diarrhea. denies: fever - Related Data Previous Rx's Medication Instructions Recorded Last Taken Type cephALEXin [Keflex] 500 mg PO Q12HR #20 cap 01/29/18 Unknown Rx Ondansetron [Zofran ODT TAB] 8 mg PO Q12HR #20 tab.rapdis 03/17/18 Unknown Rx Sulfamethoxazole/Trimethoprim 1 each PO BID #10 tablet 03/17/18 Unknown Rx [Bactrim DS TAB] Dicyclomine [Bentyl] 10 mg PO QID PRN #30 capsule 05/09/18 Unknown Rx Naproxen 500 mg PO BID PRN #30 tablet 05/09/18 Unknown Rx Ondansetron [Zofran Odt] 4 mg PO Q8HR PRN #12 tab.rapdis 05/09/18 Unknown Rx Dicyclomine [Bentyl] 10 mg PO QID PRN #30 capsule 06/15/18 Unknown Rx Naproxen [Naprosyn] 500 mg PO BID PRN #30 tablet 06/15/18 Unknown Rx Ondansetron [Zofran Odt] 4 mg PO Q8HR PRN #12 tab.rapdis 06/15/18 Unknown Rx Dicyclomine [Bentyl] 20 mg PO QID PRN #20 tablet 07/13/18 Unknown Rx Ondansetron [Zofran Odt] 4 mg PO Q8HR PRN #20 tab.rapdis 07/13/18 Unknown Rx Allergies Allergy/AdvReac Type Severity Reaction Status Date / Time No Known Allergies Allergy Unverified 02/15/17 17:12 ED Review of Systems ROS: Stated complaint: ABD PAIN Other details as noted in HPI Comment: All other systems reviewed and negative Constitutional: denies: chills, fever Gastrointestinal: abdominal pain, nausea, vomiting, diarrhea Genitourinary: discharge. denies: dysuria, frequency ED Past Medical Hx - Past Medical History Previous Medical History?: No Hx Psychiatric Treatment: Yes (Anxiety, depression) - Surgical History Past Surgical History?: No - Social History Smoking Status: Current Every Day Smoker Substance Use Type: Alcohol, Marijuana - Medications Home Medications: Home Medications Medication Instructions Recorded Confirmed Last Taken Type cephALEXin [Keflex] 500 mg PO Q12HR #20 cap 01/29/18 Unknown Rx Ondansetron [Zofran ODT TAB] 8 mg PO Q12HR #20 tab.rapdis 03/17/18 Unknown Rx Sulfamethoxazole/Trimethoprim 1 each PO BID #10 tablet 03/17/18 Unknown Rx [Bactrim DS TAB] Dicyclomine [Bentyl] 10 mg PO QID PRN #30 capsule 05/09/18 Unknown Rx Naproxen 500 mg PO BID PRN #30 tablet 05/09/18 Unknown Rx Ondansetron [Zofran Odt] 4 mg PO Q8HR PRN #12 tab.rapdis 05/09/18 Unknown Rx Dicyclomine [Bentyl] 10 mg PO QID PRN #30 capsule 06/15/18 Unknown Rx Naproxen [Naprosyn] 500 mg PO BID PRN #30 tablet 06/15/18 Unknown Rx Ondansetron [Zofran Odt] 4 mg PO Q8HR PRN #12 tab.rapdis 06/15/18 Unknown Rx Dicyclomine [Bentyl] 20 mg PO QID PRN #20 tablet 07/13/18 Unknown Rx Ondansetron [Zofran Odt] 4 mg PO Q8HR PRN #20 tab.rapdis 07/13/18 Unknown Rx ED Physical Exam - General Limitations: No Limitations General appearance: alert, in no apparent distress - Head Head exam: Present: atraumatic, normocephalic - Eye Eye exam: Present: normal appearance - ENT ENT exam: Present: mucous membranes moist - Neck Neck exam: Present: normal inspection - Respiratory Respiratory exam: Present: normal lung sounds bilaterally. Absent: respiratory distress - Cardiovascular Cardiovascular Exam: Present: regular rate, normal rhythm - GI/Abdominal GI/Abdominal exam: Present: soft, tenderness (RLQ, suprapubic tenderness). Absent: distended - External exam: Present: normal external exam Speculum exam: Present: vaginal discharge (thin, mucous-like, yellowish- green discharge), cervical discharge (thin, mucous-like, yellowish- green discharge) Bi-manual exam: Absent: cervical motion tendernes, adnexal tenderness, adnexal mass, uterine enlargement, uterine tenderness - Extremities Exam Extremities exam: Present: normal inspection - Back Exam Back exam: Present: normal inspection - Neurological Exam Neurological exam: Present: alert, oriented X3 - Psychiatric Psychiatric exam: Present: normal affect, normal mood - Skin Skin exam: Present: warm, dry, intact, normal color ED Course Vital Signs 07/13/18 07/13/18 07/13/18 14:55 16:08 21:51 Temperature 98.6 F Pulse Rate 77 80 Respiratory 18 18 18 Rate Blood Pressure 124/79 Blood Pressure 130/80 [Right] O2 Sat by Pulse 98 99 Oximetry ED Medical Decision Making - Lab Data Result diagrams: 07/13/18 15:01 07/13/18 15:01 - Radiology Data Radiology results: report reviewed, image reviewed - Medical Decision Making 21-year-old female with symptoms of gastroenteritis, including nausea, vomiting, diarrhea, abdominal pain. On exam patient with right lower quadrant ten derness, so CT scan was ordered to even though patient is afebrile and has normal wbc's. CT showed a possible left-sided hydrosalpinx, radiologist was concerned for possible TOA, so ultrasound was ordered. On pelvic exam, patient did have discharge present, however no CMT present, no left adnexal tenderness on exam. TOA is unlikely given normal vitals, and pelvic exam. Will await ultrasound results. - Differential Diagnosis gastroenteritis, appendicitis, UTI, hydrosalpinx, TOA Critical care attestation.: If time is entered above; I have spent that time in minutes in the direct care of this critically ill patient, excluding procedure time. ED Disposition Clinical Impression: Hydrosalpinx, Nausea & vomiting, Gastroenteritis Disposition: - TO HOME OR SELFCARE Is pt being admited?: No Condition: Stable Additional Instructions: Hydrosalpinx: Symptoms, fertility, and treatment Last reviewed Sun 20 May 2017 By Shruthi Bueno Reviewed by Mary Alice Narayan, PhD, MSN, RN, IBCLC, HILLARY-BC, CHT Symptoms Diagnosis Causes Infertility Treatment Alpha Hydrosalpinx is the name for a condition in which a woman's fallopian tube becomes blocked with fluid. There are different causes for this condition and symptoms can vary depending on the individual. Some women do not experience any symptoms, but hydrosalpinx can have a severe impact on fertility. Symptoms Symptoms of hydrosalpinx include: abdominal and pelvic pain unusual vaginal discharge However, it is possible to have hydrosalpinx and not experience any symptoms. Because hydrosalpinx impacts infertility, many women only discover they have the condition when trying to get . Diagnosis Uterus with hydrosalpinx causing inflamed fallopian tubes. Image credit: Oc, (May 24) Hydrosalpinx is characterized by one or both fallopian tubes being filled with water. Image credit: Oc, (May 24) A doctor can diagnose hydrosalpinx using several methods. These include: A sonohysterosalpingography: This is when saline fluid and sterile air are passed through a woman's cervix and into the uterus. A transvaginal ultrasound is then used to look at the reproductive organs to see if a blockage is present. An ultrasound: This is one way of looking for hydrosalpinx, but is not as effective. One study reported that only 34 percent of cases were visible using ultrasound. Hysterosalpingogram (HSG): This is a type of X-ray that can display tubal blockages. A special dye visible to the X-ray is introduced through the vagina and cervix. Laparoscopy: Also known as keyhole surgery, a laparoscopy is a surgical procedure where small incisions are made in the abdomen, and a camera is inserted. This allows a surgeon to see the organs and remove fluid or other issues. A diagnostic laparoscopy can also determine whether there is another issue that may be causing infertility, such as endometriosis. ADVERTISEMENT BRILINTA (ticagrelor) 60 mg - Compare BRILINTA To Aspirin View Data Comparing BRILINTA vs Aspirin - Drug Info+Boxed WARNINGS [email or web address].[email or web address] Causes and risk factors There are several different reasons why hydrosalpinx may occur. The most common causes include: sexually transmitted infections (STIs) endometriosis pelvic inflammatory disease (PID) ruptured appendicitis abdominal surgery When an area of the body suffers an injury, the body quickly transports inflammatory cells into the area as part of an immune response. In a fallopian tube, the inflammation and healing can cause loss of the fimbria (finger-like projections at the end of the fallopian tube) and the eventual closure of the tube. Hydrosalpinx and infertility Female patient speaking to production controller about fertility, looking at image of uterus and fallopian tubes. Anyone with hydrosalpinx should seek professional advice for planning a . During conception, the egg travels from an ovary along the fallopian tube to the uterus. Hydrosalpinx causes the fallopian tube to become blocked with fluid, so the egg cannot pass down the tube, Also, the fimbria that help to draw the egg from the ovary into the tubes can become stuck together. If only one fallopian tube is blocked, it is still possible to conceive without intervention, as eggs from the other ovary will still be able to make it to the uterus. There is also a chance that the fluid buildup could leak into the uterus and interfere with the embryo implanting itself properly. Causes and treatment of ovary pain Causes and treatment of ovary pain While most women are not regularly aware of their ovaries, some may experience pain or discomfort occasionally. Learn why. READ NOW Treatment and management The most common treatment for a woman with hydrosalpinx is to have surgery to remove the affected tube. This type of surgery is known as salpingectomy. Surgery may also be offered to remove scar tissue or other adhesions that could be affecting fertility. If endometriosis is found to be the cause, doctors can also remove the e ndometrial growths. In instances where PID is the cause, a doctor may prescribe a course of antibio tics to treat any remaining infections. Many women who have hydrosalpinx choose to use in vitro fertilization (IVF) treatment when trying to conceive. If IVF treatment is started before surgery to remove the affected tube, chances of success are lower. It is, therefore, recommended to complete surgery before undergoing IVF treatment to ensure the best chances of success. Another possible treatment is sclerotherapy. Sclerotherapy is where an ultrasound-guided needle is used to draw fluid out of the affected tube. A special chemical, called a sclerosing agent, is then injected, which should p revent the fluid from building back up again. Minimal research on sclerotherapy has been carried out, so it is difficult to determine the associated risks and whether its effectiveness can match that of removing the tube in its entirety. Alpha IVF being portrayed by egg and needle. IVF may help those with hydrosalpinx to conceive. It is possible for a woman to get with hydrosalpinx. However, chances of a successful depend on the cause and severity of the blockage, and whether the woman has undergone any treatment. Conception may occur without any treatment, but chances are lower and the risks of complications, such as early loss, are more significant. If a woman decides to have treatment for hydrosalpinx, chances of a successful are higher, particularly if IVF treatment is given after treatment has taken place. It is thought that both salpingectomy and sclerotherapy have similar success rates when combined with IVF treatment, but more research needs to be done to confirm this. A doctor will be able to talk through the different treatment options and help a woman decide what option is best for her. RELATED COVERAGE Fertility preservation: What are women's options? Medical or personal reasons may prompt women to consider fertility preservation. Find out what the options are and what research may bring in the future. READ NOW What to know about enlarged uterus In this article, learn about enlarged uterus, how this condition is caused, the complications and risks associated with it, and the treatment options. READ NOW How does sperm motility affect fertility? Sperm motility refers to the ability of the sperm to move efficiently. Low sperm motility is one factor that can lead to infertility. Causes include infection, trauma, congenital problems, and exposure to some substances. Find out how low motility impacts fertility, and what can be done to treat it. READ NOW What causes implantation bleeding? While an impending can be associated with feelings of excitement or anxiety, it is often accompanied by harmless bleeding that can cause needless worry. Learn about the bleeding that occurs when a fertilized egg attaches to the lining of the uterus, including signs and symptoms, and when to see a doctor. READ NOW Oophorectomy: Everything you need to know An oophorectomy is a surgical procedure to remove one or both of a womans ovaries. Learn more about what to expect during the procedure and recovery. READ NOW Prescriptions: Dicyclomine [Bentyl] 20 mg PO QID PRN #20 tablet PRN Reason: abdominal pain Ondansetron [Zofran Odt] 4 mg PO Q8HR PRN #20 tab.rapdis PRN Reason: Vomiting Referrals: [facility] [Other] - 3-5 Days [facility] [Provider Group] - 3-5 Days
[2018-07-13 16:48] LABS: Bilirubin,Urine NEG (Negative); Blood,Urine SM (Negative); Color,Urine Amber (Yellow); Mucus,Urine 3+ /HPF; Urobilinogen,Urine < 2.0 mg/dL (<2.0)
[2018-07-13 16:52] LABS: HCG Qualitative,Urine Negative (Negative)
--- NOTE | 2018-07-13 18:24 | Cat Scan Report ---
PROCEDURE: CT ABDOMEN PELVIS W CON TECHNIQUE: Following administration of IV contrast axial helical imaging was performed through the a bdomen and pelvis with sagittal and coronal reformatted images obtained. Delayed axial helical imagin g was also performed through the abdomen and pelvis. HISTORY: RLQ pain, vomiting, watery diarrhea afebrile. The patient is not clinically . No pel jolie symptoms. COMPARISONS: None FINDINGS: There is no evidence of infiltrate, pneumothorax or pleural fluid collection. The cardiac silhouette is normal size. There is an approximately 7.5 mm well-defined hypodensity in the left lobe of the liver with Hounsfie ld units consistent with a cyst. The liver is otherwise unremarkable. The spleen, pancreas, kidneys and adrenal glands are unremarkable. There are mildly distended segments of small bowel and colon which contain air and fluid-filled with air-fluid levels. This is most suggestive of an ileus. The distal appendix is normal caliber (6 mm) but contains fluid. There is no definite evidence of bow el wall thickening of the appendix. This is likely part of a more systemic bowel process/ileus rather than isolated appendicitis. There is a small to moderate amount of free fluid in the pelvis. The Hounsfield units are suggestive of complex fluid and may represent proteinaceous content or blood products. There is no evidence of pneumoperitoneum. The abdominal aorta is normal caliber. There are mildly prominent retroperitoneal lymph nodes. These are nonspecific in appearance but are m ost likely inflammatory in nature. The urinary bladder is mildly distended and unremarkable. The uterus and adnexa are notable for a tubular fluid-filled structure in the left adnexa with margin al enhancement that is suggestive of a hydrosalpinx. There appears to be a small focus of decreased density with marginal enhancement in the left ovary th at measures approximately 1 cm in size. The bony structures are unremarkable. IMPRESSION: 1. Findings most suggestive of an ileus. 2. [id number] amount of free fluid in the pelvis. The Hounsfield units are suggestive of prote inaceous content or blood products. 3. Findings suggestive of left hydrosalpinx with an approximately 1 cm area of decreased density in t he left ovary with marginal enhancement. Infectious and noninfectious etiologies need to be considere d to include tubo-ovarian abscess, ruptured hemorrhagic ovarian cyst, ectopic gestation. Pelvic ultrasound may be helpful for further evaluation. The above findings and recommendation were discussed with Dr. Castillo at 6:20 PM July 13, 2018. This document is electronically signed by Charla Higuera MD., July 13 2018 06:21:59 PM ET
--- NOTE | 2018-07-13 20:42 | Ultrasound Report ---
PROCEDURE: US TRANSVAGINAL TECHNIQUE: Transabdominal and transvaginal grayscale, color flow and Doppler waveform imaging of the pelvis was performed. HISTORY: abd pain, abnormal CT COMPARISONS: CT abdomen and pelvis also performed today FINDINGS: The uterus measures 7.7 cm x 4.4 cm x 5.4 cm and is unremarkable in appearance. Endometrial thickness measures 9.3 mm. The right ovary measures 3.2 cm x 2.6 cm x 1.6 cm and contains a small dominant follicle. Flow is dem onstrated in the right ovary utilizing color flow and Doppler waveform imaging. The left adnexa is notable for a tubular structure with increased thickness of the wall corresponding to the hydrosalpinx demonstrated on the recent CT. The left ovary is not convincingly demonstrated. Free fluid is demonstrated in the pelvis. IMPRESSION: 1. Repeat demonstration of a left hydrosalpinx with increased thickness of the wall of the fallopian tube. 2. The left ovary is not convincingly demonstrated. 3. Free fluid is demonstrated in the pelvis. 4. Unremarkable appearance of the uterus and right ovary. This document is electronically signed by Charla Higuera MD., July 13 2018 08:39:53 PM ET
--- NOTE | 2018-07-13 21:01 | Ultrasound Report ---
PROCEDURE: US PELVIS DUPLEX DOPPLER COMP TECHNIQUE: Transabdominal and transvaginal grayscale, color flow and Doppler waveform imaging of the pelvis was performed. HISTORY: abd pain, abnormal CT COMPARISONS: CT abdomen and pelvis also performed today FINDINGS: The uterus measures 7.7 cm x 4.4 cm x 5.4 cm and is unremarkable in appearance. Endometrial thickness measures 9.3 mm. The right ovary measures 3.2 cm x 2.6 cm x 1.6 cm and contains a small dominant follicle. Flow is demonstrated in the right ovary utilizing color flow and Doppler waveform imaging. The left adnexa is notable for a tubular structure with increased thickness of the wall corresponding to the hydrosalpinx demonstrated on the recent CT. The left ovary is not convincingly demonstrated. Free fluid is demonstrated in the pelvis. IMPRESSION: 1. Repeat demonstration of a left hydrosalpinx with increased thickness of the wall of the fallopian tube. 2. The left ovary is not convincingly demonstrated. 3. Free fluid is demonstrated in the pelvis. 4. Unremarkable appearance of the uterus and right ovary. This document is electronically signed by Charla Higuera MD., July 13 2018 08:59:12 PM ET
[2018-07-13] MEDS ORDERED: ZITHROMAX PO STA (21:20)
[2018-07-13] MEDS ORDERED: ROCEPHIN IM STA (21:20)
[2018-07-13] MEDS ORDERED: XYLOCAINE 1% MPF 5 mL INFILTRATI ONE (21:20)
[2018-07-13 21:51] VITALS: BP 130/80
--- NOTE | 2018-07-13 21:53 | Emergency Department Report ---
Blank Doc - Documentation Documentation: Review the ultrasound findings positive for hydrosalpinx. No evidence of any PID. Discussed with the patient in great detail review in the the ultrasound report and laboratory data and her diagnosis of the hydrosalpinx. We also did discuss the likelihood of her having an STD and also the need for Further evaluation and treatment with an [employer], which may likely yielded a surgical surgical intervention. She has been advised to 2 to be compliant with medication regimen. Advised to return to emergency department should she denies any fever, bleeding, worsening pain, any suggestion that her symptoms are worsening.
== END 2018-07-13 22:30 | disposition home or self-care (01) ==
LOC: ED 14:50
DX: K52.9 Noninfective gastroenteritis and colitis, unspecified (principal); N70.11 Chronic salpingitis; F32.9 Major depressive disorder, single episode, unspecified; F41.9 Anxiety disorder, unspecified; F17.200 Nicotine dependence, unspecified, uncomplicated; F12.10 Cannabis abuse, uncomplicated
CPT/HCPCS: 36415; 74177; 76830; 80053; 81001; 81025; 84703; 85025; 87210; 87591; 93975; 96361; 96372; 96374; 99285; J0696; J1885; J7030; Q9967